=== PATIENT | male | born 2000 | race African-American/Black ===

== ENCOUNTER 2024-09-16 18:04 | Inpatient (IN) | payer OTHER, SELFPAY ==
--- NOTE | 2024-09-16 18:33 | PC.NURSE ---
Patient arrived on the unit at 1818 on a CV from [facility]. Patients vitals have been completed (97% 96HR, 15R, 114/75 98.8) and skin check was done with another nurse and found unremarkable. Patient has been given a bag of toiletries and oriented to the unit and his room.
[2024-09-16 18:38] VITALS: BP 114/75; PULSE 96; RESP 15; TEMP 37.1; O2SAT 97; BMI 26.6
[2024-09-16 19:43] LABS: Glucose, Whole Blood 340 mg/dL (60-115)
[2024-09-16 20:00] VITALS: BP 140/75; PULSE 97; RESP 16; TEMP 37.4; O2SAT 100
[2024-09-16] MEDS: Melatonin 3 MG TABLET 6 MG PO (21:25)
[2024-09-16] MEDS: traZODone HCL 50 MG TABLET PO (21:25)
[2024-09-16] MEDS: Gabapentin 600 MG TABLET PO (21:26)
[2024-09-16] MEDS: hydrOXYzine HCL 25 MG TABLET PO (21:26)
[2024-09-16] MEDS: Insulin Glargine,Hum.rec.anlog 100 UNIT/ML 10 ML VIAL 11.2 UNIT SUBCUT (21:46)
--- NOTE | 2024-09-17 03:33 | PC.ADMIT ---
At 1818, Lacie Salgado, is a 23 year old transgender male (he/him) who was transferred from [facility] and admitted to on a CV for treatment of unspecified depression and anxiety. Pt initially presented to [facility] with altered mental status and in a hyperglycemic state related to his Type Two Diabetes. Pt was admitted to the ICU for further management, medically cleared, then transferred to a medical floor. While being there, the medical team was concerned about possible non-compliance with meds/insulin and pt making a passive SI statement while in their care. PMHX includes insulin dependent type two diabetes, diagnosed at 21, (Recent A1C 16.1% 08/14/24; average BG 237-381) chronic pancreatitis, depression, anxiety, SIB via cutting his wrists and thighs during late teens/early twenties.The last episode of self-harm was at 21/20 years old. Reports using a therapist but denies history of inpatient psychiatric treatment. Per crisis assessment, he endorses worsening depressive symptoms, insomnia (3-5 hours a night), low energy, CAH, and he has had one suicide attempt approximately a week ago. Crisis report states, pt was looking for a bleach bottle at home with the intent to drink it to end his life, reporting he was struggling with voices in his head. Upon arrival to , he was pleasant, soft spoken, and cooperative. Skin check was unremarkable. Tox was negative. Affect is restricted. Reported unintentional 5-7lb weight loss from adjusting to diabetes. Per crisis assessment, he endorses worsening depressive symptoms, insomnia (3-5 hours a night), low energy, and CAH. During 1:1, he denied anxiety, depression, and all other psych symptoms such as AVH and SI/HI. He stated, ?I?m confused. fine. I?m not crazy. I don?t need to be here. I want it all to end sometimes but I don?t want to actually . I think the doctor misunderstood me when I said the pain from my diabetes makes me want to .? Denies SIB, suicide attempts, and current SI/HI. Reports 8/10 mid-abdominal pain, radiating to his side, he believes is related to his chronic pancreatitis. He states he uses 10mg of Oxycodone for pain management. (Med rec indicated hx of 5mg) Pt POC order still pending. Hospitalist consult ordered. Reports feeling safe on the unit. Pt placed on 15 minute checks. Safety tool, treatment plan, and belongings to be signed.?
[2024-09-17 07:49] LABS: Glucose, Whole Blood 229 mg/dL (60-115)
[2024-09-17 08:02] VITALS: BP 100/57; PULSE 76; RESP 16; TEMP 36.8; O2SAT 97
[2024-09-17] MEDS: Cholecalciferol (Vitamin D3) 25 MCG TABLET 50 MCG PO (09:05)
[2024-09-17] MEDS: Insulin Lispro 100 UNIT/ML 3 ML VIAL SUBCUT ×3 (09:05→18:09)
[2024-09-17] MEDS: Sertraline HCL 100 MG TABLET PO (09:05)
[2024-09-17] MEDS: Gabapentin 600 MG TABLET PO ×3 (09:05→20:34)
[2024-09-17] MEDS: Acetaminophen 325 MG TABLET 650 MG PO ×2 (09:08→20:32)
[2024-09-17 10:07] LABS: Alanine Aminotransferase 77 U/L (0-40); Albumin Level 4.3 g/dL (3.5-5.0); Alkaline Phosphatase 87 U/L (39-117); Anion Gap 24 (12-20); Aspartate Amino Transferase 56 U/L (5-37); Bilirubin Total 0.5 mg/dL (0.0-1.0); Blood Urea Nitrogen 12 mg/dL (9-16); Calcium 9.6 mg/dL (8.4-10.2); Carbon Dioxide 18 mmol/L (22-29); Chloride 98 mmol/L (96-108); Cholesterol 217 mg/dL (<200); Creatinine Clr Calc Pharmacy 94.9; Estimated Glomerular Filt Rate > 60; Glucose Random 290 mg/dL (60-115); HDL Cholesterol 57 mg/dL (>40); LDL Cholesterol Calculated 134 mg/dL (<100); Potassium 3.9 mmol/L (3.3-5.1); Sodium 136 mmol/L (135-145); Total Protein 7.2 g/dL (6.5-8.0); Triglycerides 134 mg/dL (<150)
--- NOTE | 2024-09-17 10:18 | P.HPPS_ITS ---
HPI Date of Service: 09/17/24 Chief Complaint: Unspecified Depressive Disorder, Unsp Anxiety Dis Sources of Information: patient interviewed, chart reviewed and crisis/core team assessment reviewed HPI Subjective Notes: Magana Warning, Conditional Voluntary and 3 Day Narrative: is a 23 year-old transgendered male who was initially brought via EMS to [facility] on 09/11/24 due to pt presenting as confused, non verbal. He was found to be hyperosmolar hyperglycemic (BS over 750) but no DKA (VBG 7.35). He was transferred briefly to ICU and started on an insulin drip. Pertinent labs include CBC without leukocytosis. CMP without electrolyte abnormalities (sodium level normal accounting for hyperglecemia), BUN 9, Cr. 0.87, creatinine clearance 120. TSH low 0.17, A1C 16%. Utox is negative. BAL is also negative. Pt had reported he had stopped taking insulin intentionally as suicide attempt. He also has hx of chronic pancreatitis which causes significant amount of pain. Pt had reported multiple medical conditions were trigger to suicide attempt. According to records from [facility] pt had reported ongoing suicidal ideation for the past 3 weeks of so with plan to drive care into [facility] or not taking insulin. Pt had also reported that he was looking a week ago for a bottle of bleach at home. On the unit, pt adamantly denies suicidal ideation. He reported that he gets tired of dealing with medical condition both DM and chronic pancreatitis which he reports has intermittent moderate to severe abdominal pain. He reported feeling better now that he is on the unit and reported feeling more optimistic about his life. He reports fair sleep. He reports his PCP has been prescribing medications. He denies hx of psychosis or delusions. He does not present with s/s of psychosis. He reports remote hx of SIB in late teens and early 20's. He reports current medications are helpful and would not want to make further changes. He does not think he should be here. Past Psychiatric History: Inpt: none OP: Kiel Sun- psychotherapist ([phone]) PCP: Dr. Raz Valladares Past medication trials: sertraline, lexapro Medical Evaluation Reviewed: Yes [facility] Medical History (Updated 09/19/24 @ 07:03 by Myra Wilson NP) Chronic pancreatitis Depression Anxiety Family History: none Social History: Pt born in [facility]. He came with family to [place] in [place]. He currently lives with mother in [place], [place] with 3 siblings ages 18, 16, 11. 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. He completed HS. Substance History: none Trauma History: not disclosed Diagnostics Vital Signs (24Hr): Vital Signs - 24 hr 09/16/24 18:38 09/16/24 20:00 09/17/24 08:02 Temperature 98.8 F 99.3 F 98.2 F Pulse Rate 96 97 76 Respiratory Rate 15 16 16 Blood Pressure 114/75 140/75 H 100/57 L Pulse Oximetry 97 100 97 Oxygen Delivery Method Room Air Room Air Room Air BMI result Body Mass Index 26.6 Labs 09/17/24 09:03 Labs: Laboratory Results - last 48 hr 09/16/24 09/17/24 09/17/24 19:38 07:42 09:03 Sodium 136 Potassium 3.9 Chloride 98 Carbon Dioxide 18 L Anion Gap 24 H BUN 12 Creatinine 0.92 Estim Creat Clear Calc 94.9 Estimated GFR > 60 POC Glucose 340 H 229 H Random Glucose 290 H Calcium 9.6 Total Bilirubin 0.5 AST 56 H ALT 77 H Alkaline Phosphatase 87 Total Protein 7.2 Albumin 4.3 Triglycerides 134 Cholesterol 217 H LDL Cholesterol, Calc 134 H HDL Cholesterol 57 Meds/Allergies Meds Home Medications ?Medication ?Instructions ?Recorded ?Confirmed ?Type Tylenol 500 mg PO Q6-8H PRN Pain (Scale 09/16/24 09/16/24 History Score 7-10) cholecalciferol (vitamin D3) 50 50 mcg PO DAILY 09/16/24 09/16/24 History mcg (2,000 unit) capsule gabapentin 600 mg tablet 600 mg PO TID 09/16/24 09/16/24 History hydroxyzine HCl 25 mg tablet 25 mg PO TID PRN anxiety 09/16/24 09/16/24 History ibuprofen 600 mg tablet 600 mg PO QID PRN Pain 09/16/24 09/16/24 History insulin aspart U-100 100 unit/mL 5 unit subcut TIDWM 09/16/24 09/16/24 History (3 mL) subcutaneous pen insulin degludec 100 unit/mL (3 16 unit subcut BEDTIME 09/16/24 09/16/24 History mL) subcutaneous pen (Tresiba FlexTouch U-100 insulin) [id number] 36,000 cap PO TIDWM 09/16/24 09/16/24 History 36,000-114,000-180,000 unit capsule,delay rel (Creon) melatonin 3 mg tablet 6 mg PO BEDTIME insomnia 09/16/24 09/16/24 History oxycodone 5 mg tablet 5 mg PO Q6H PRN pain 09/16/24 09/16/24 History sertraline 100 mg tablet 100 mg PO DAILY 09/16/24 09/16/24 History testosterone cypionate 200 mg/mL 40 mg IM QWEEK 09/16/24 09/16/24 History intramuscular oil Allergies Allergies Allergy/AdvReac Type Severity Reaction Status Date / Time No Known Allergies Allergy Verified 09/16/24 18:13 Mental Status Exam Mental Status Exam Narrative: Appearance: wearing hospital gown, fair hygiene, in NAD Behavior: cooperative, superficially cooperative Psychomotor: no agitation or retardation noted Speech: clear, normal rate/rhythm/volume, spontaneous TP: linear TC: wanting to go home soon SI: adamantly denies HI: none VH/AH: none Delusions: none Insight/judgment: poor x 2. Memory/cog: alert, oriented x 3. grossly intact to conversational testing. Assessment & Plan Assessment & Plan (1) MDD (major depressive disorder), recurrent episode, moderate: Status: Acute Code(s): F33.1 - Major depressive disorder, recurrent, moderate Plan Mr. Salgado is a 23 year-old transgendered male who initially was brought to [facility] due to AMS secondary to being in hyperosmolar hyperglecemic state (no DKA despite BS >750). He reported intentionally not taking insulin as suicide attempt. He also had reported at the other hospital ongoing suicidal ideation for the past month or so in context of worsening medical conditions including uncontrolled DM with an A1c of 16% and chronic pancreatitis which causes him to have intermittent moderate to severe abdominal pain. However, here on the unit, he adamantly denies suicidal ideation. He reports it was brief moment of frustration his decision not to take insulin. He reports he feels more optimistic and hopes to be discharged soon. We discussed risks, benefits and alternative treatment options. He wants to continue current medication including sertraline. PLAN 1. Admit to S1, CV, 15 minutes checks 2. continue current medications 3. obtain collateral information 4. aftercare planning Patient educated on: diagnosis and medication risk/benefits Reason for continued inpatient stay Substantial Risk for: harm to self Statement Statement: I have reviewed the history and physical and performed a pertinent examination on my patient. No changes have occurred unless specified. If the History and Physical was not performed prior to admission, the Hospitalist's service will be consulted for completing the admission physical. Time Spent With Patient Time: Total time managing care of this patient today ____ minutes.
[2024-09-17 10:20] LABS: Thyroid Stimulating Hormone 2.13 uIU/mL (0.32-4.0)
[2024-09-17 10:27] LABS: Folate 13.7 ng/mL (> or = 4.0); Vitamin B12 1469 pg/mL (200-900)
--- NOTE | 2024-09-17 11:30 | P.HPHOSP_ITS ---
History of Present Illness Date of Service: 09/17/24 Chief Complaint: Admission H&P Pt is a 23-year-old transgender male with a PMH significant for?uncontrolled insulin-dependent type 2 diabetes, chronic pancreatitis, chronic occlusion of splenic vein, depression, and anxiety who is admitted to [facility] psychiatry unit for passive SI in the setting of psychosocial stressors and chronic health concerns. Pt initially presented to [facility] with hyperglycemia and AMS. Patient's glucose was 737, and serum osmolality 323 but not in DKA as beta hydroxybutyrate was 1.8. Was admitted to the ICU for hyperosmolar hyperglycemic state and started on an insulin drip. Pt has a long hx of noncompliance with insulin, and often will not administer it until sugars are in the 500-700 range. Apparently has previous hospitalizations for DKA. Medical consult for admission H&P. Pt seen and evaluated on the unit?where he is resting comfortably in bed. Pt reports was diagnosed with diabetes 2-3 years ago when he was also diagnosed with chronic pancreatitis. Pt is unsure of any other details, including etiology of either condition. Uncertain whether he has type 1, type 2, or type 3c diabetes. States has been on chronic opioids for the past year for chronic abdominal pain, which is apparently prescribed by his PCP. Currently pt has no acute medical complaints and denies nausea, vomiting, abdominal pain. No fever, chills. Denies chest pain/pressure, palpitations. No SOB or difficulty breathing. Labs reviewed, significant for PMFSH Social History Household Members: Family Housing: House Do you presently have visiting nurse or other home services: No Patient Tobacco Use Status: Never used Tobacco Currently Displaying Signs/Symptoms of Drug Intoxication Withdrawal: No Have you been hit, kicked, punched, or otherwise hurt by someone within the past year? If so, by whom?: No Do you feel safe in your current relationship?: Yes Is there a partner from a previous relationship who is making you feel unsafe now?: No Are you made to feel afraid or neglected: No Advance Directives: No Advance Directives Information Provided: Yes Do you have thoughts of harming others: None Do you have a plan to hurt others: No Plan Recently lost weight without trying: Yes How much weight loss: 2-13 pounds Eating poorly because of decreased appetite: No Nutrition screen score: 3 Nutrition Risks: No Nutritional Risk Poor oral hygiene: No Meds Allergies Allergy/AdvReac Type Severity Reaction Status Date / Time No Known Allergies Allergy Verified 09/16/24 18:13 Active Medications: Current Medications Acetaminophen (Acetaminophen 325 Mg Tablet) 650 mg PO Q6H PRN PRN Reason: Pain (Scale Score 7-10) Al Hydroxide/Mg Hydroxide (Magnesium Hydrox/Alum Hydrox 30 Ml Oral.Susp) 30 ml PO Q6H PRN PRN Reason: Heartburn/Nausea Gabapentin (Gabapentin 600 Mg Tablet) 600 mg PO TID [facility] Last Admin: 09/17/24 09:05 Dose: 600 mg Hydroxyzine HCl (Hydroxyzine Hcl 25 Mg Tablet) 25 mg PO TID PRN PRN Reason: anxiety Insulin Glargine (Insulin Glargine,Hum.Rec.Anlog 100 Unit/Ml 10 Ml Vial) 11.2 unit SUBCUT BEDTIME [facility] Last Admin: 09/16/24 21:46 Dose: 11.2 unit Insulin Human Lispro (Insulin Lispro 100 Unit/Ml 3 Ml Vial) 5 unit SUBCUT TIDWM [facility] Last Admin: 09/17/24 09:05 Dose: 5 unit Magnesium Hydroxide (Milk Of Magnesia 30 Ml Oral.Susp) 30 ml PO DAILY PRN PRN Reason: Constipation Melatonin (Melatonin 3 Mg Tablet) 6 mg PO BEDTIME [facility] Last Admin: 09/16/24 21:25 Dose: 6 mg Non-Formulary Medication (Gzpjmx-Aaxmynpk-Dxtorkq [Creon]) 36,000 cap PO TIDWM [facility] Non-Formulary Medication (Testosterone Cypionate) 40 mg IM Q7D [facility] Sertraline HCl (Sertraline Hcl 100 Mg Tablet) 100 mg PO DAILY [facility] Last Admin: 09/17/24 09:05 Dose: 100 mg Trazodone HCl (Trazodone Hcl 50 Mg Tablet) 50 mg PO BEDTIME MRX1 PRN PRN Reason: Insomnia Last Admin: 09/16/24 21:25 Dose: 50 mg Vitamin D (Cholecalciferol (Vitamin D3) 25 Mcg Tablet) 50 mcg PO DAILY [facility] Last Admin: 09/17/24 09:05 Dose: 50 mcg Home Medications ?Medication ?Instructions ?Recorded ?Confirmed ?Last Taken ?Type Tylenol 500 mg PO Q6-8H PRN Pain (Scale 09/16/24 09/16/24 Unknown History Score 7-10) cholecalciferol (vitamin D3) 50 50 mcg PO DAILY 09/16/24 09/16/24 Unknown History mcg (2,000 unit) capsule gabapentin 600 mg tablet 600 mg PO TID 09/16/24 09/16/24 09/13/24 14:50 History hydroxyzine HCl 25 mg tablet 25 mg PO TID PRN anxiety 09/16/24 09/16/24 Unknown History ibuprofen 600 mg tablet 600 mg PO QID PRN Pain 09/16/24 09/16/24 Unknown History insulin aspart U-100 100 unit/mL 5 unit subcut TIDWM 09/16/24 09/16/24 Unknown History (3 mL) subcutaneous pen insulin degludec 100 unit/mL (3 16 unit subcut BEDTIME 09/16/24 09/16/24 Unknown History mL) subcutaneous pen (Tresiba FlexTouch U-100 insulin) [id number] 36,000 cap PO TIDWM 09/16/24 09/16/24 Unknown History 36,000-114,000-180,000 unit capsule,delay rel (Creon) melatonin 3 mg tablet 6 mg PO BEDTIME insomnia 09/16/24 09/16/24 Unknown History oxycodone 5 mg tablet 5 mg PO Q6H PRN pain 09/16/24 09/16/24 Unknown History sertraline 100 mg tablet 100 mg PO DAILY 09/16/24 09/16/24 Unknown History testosterone cypionate 200 mg/mL 40 mg IM QWEEK 09/16/24 09/16/24 Unknown History intramuscular oil Physical Exam 2 Vital Signs and Narrative: Vital Signs: Last Vital Signs Temp 98.2 F 09/17/24 08:02 Pulse 76 09/17/24 08:02 Resp 16 09/17/24 08:02 BP 100/57 L 09/17/24 08:02 Pulse Ox 97 09/17/24 08:02 O2 Del Method Room Air 09/17/24 08:02 BMI result Body Mass Index 26.6 Results Labs 09/17/24 09:03 Labs: Laboratory Results - last 24 hr 09/16/24 09/17/24 09/17/24 19:38 07:42 09:03 Anion Gap 24 H Estim Creat Clear Calc 94.9 Estimated GFR > 60 POC Glucose 340 H 229 H Random Glucose 290 H Calcium 9.6 Total Bilirubin 0.5 AST 56 H ALT 77 H Alkaline Phosphatase 87 Total Protein 7.2 Albumin 4.3 Triglycerides 134 Cholesterol 217 H LDL Cholesterol, Calc 134 H HDL Cholesterol 57 Vitamin B12 1469 H Folate 13.7 TSH 2.13
[2024-09-17 12:28] LABS: Glucose, Whole Blood 199 mg/dL (60-115)
[2024-09-17 14:30] LABS: Hemoglobin A1C 561.8367 umol/L; Hemoglobin A1c % > 14.0 % (<6.0); Total Hemoglobin (HGBA1C) 4031.5939 umol/L
[2024-09-17] MEDS: oxyCODONE HCl Immed Release 5 MG TABLET PO ×2 (15:42→21:32)
--- NOTE | 2024-09-17 16:54 | PC.NURSE ---
Pt signed a 3 day 09/17/24, up on? Thursday09/21/24
[2024-09-17 16:58] LABS: Glucose, Whole Blood 286 mg/dL (60-115)
[2024-09-17 20:00] VITALS: BP 113/58; PULSE 97; RESP 16; TEMP 37.4; O2SAT 96
[2024-09-17 20:30] LABS: Glucose, Whole Blood 487 mg/dL (60-115)
[2024-09-17] MEDS: Melatonin 3 MG TABLET 6 MG PO (20:33)
[2024-09-17] MEDS: traZODone HCL 50 MG TABLET PO (20:34)
[2024-09-17] MEDS: Insulin Glargine,Hum.rec.anlog 100 UNIT/ML 10 ML VIAL 11.2 UNIT SUBCUT (20:34)
[2024-09-17] MEDS: hydrOXYzine HCL 25 MG TABLET PO (20:34)
[2024-09-17 21:40] LABS: Glucose, Whole Blood 491 mg/dL (60-115)
[2024-09-17] MEDS: Insulin Lispro 100 UNIT/ML 3 ML VIAL 10 UNIT SUBCUT (22:10)
[2024-09-18 08:01] VITALS: BP 108/59; PULSE 78; RESP 16; TEMP 37.2; O2SAT 98
[2024-09-18 08:06] LABS: Glucose, Whole Blood 402 mg/dL (60-115)
[2024-09-18] MEDS: Sertraline HCL 100 MG TABLET PO (08:35)
[2024-09-18] MEDS: Insulin Lispro 100 UNIT/ML 3 ML VIAL SUBCUT ×7 (08:35→21:40)
[2024-09-18] MEDS: Cholecalciferol (Vitamin D3) 25 MCG TABLET 50 MCG PO (08:35)
[2024-09-18] MEDS: Gabapentin 600 MG TABLET PO ×3 (08:35→21:37)
[2024-09-18] MEDS: Insulin Glargine,Hum.rec.anlog 100 UNIT/ML 10 ML VIAL 10 UNIT SUBCUT ×2 (08:50→21:41)
[2024-09-18 11:54] LABS: Glucose, Whole Blood 297 mg/dL (60-115)
[2024-09-18] MEDS: oxyCODONE HCl Immed Release 5 MG TABLET PO ×2 (12:05→20:04)
--- NOTE | 2024-09-18 16:45 | HO.PM.IMCN ---
History of Present Illness Data of Consult Service Date: 09/17/24 Primary Care Provider: Unknown Physician HPI Reason for consult: Admission H&P Pt is a 23-year-old transgender male with a PMH significant for?uncontrolled insulin-dependent type 2 diabetes, chronic pancreatitis, chronic occlusion of splenic vein, depression, and anxiety who is admitted to M3 psychiatry unit for passive SI in the setting of psychosocial stressors and chronic health concerns. Pt initially presented to [facility] with hyperglycemia and AMS. Patient's glucose was 737, and serum osmolality 323 but not in DKA as beta hydroxybutyrate was 1.8. Was admitted to the ICU for hyperosmolar hyperglycemic state and started on an insulin drip. Pt has a long hx of noncompliance with insulin, and often will not administer it until sugars are in the 500-700 range. Apparently has previous hospitalizations for DKA. Medical consult for admission H&P. Pt seen and evaluated on the unit?where he is resting comfortably in bed. Pt reports was diagnosed with diabetes 2-3 years ago when he was also diagnosed with chronic pancreatitis. Pt is unsure of any other details, including etiology of either condition. Uncertain whether he has type 1, type 2, or type 3c diabetes. States has been on chronic opioids for the past year for chronic abdominal pain, which is apparently prescribed by his PCP. Currently pt has no acute medical complaints and denies nausea, vomiting, abdominal pain. No fever, chills. Denies chest pain/pressure, palpitations. No SOB or difficulty breathing. Review of records show last A1c 16.1 on 08/14/2024. Labs reviewed, significant for hyperglycemia in the 400s and A1c >14.0. Review of Systems Review of Systems: Pt has no acute medical complaints at this time. [facility] Medical History (Updated 09/18/24 @ 16:48 by MASOUD Tate) Chronic pancreatitis Depression Anxiety Social History Household Members: Family Housing: House Do you presently have visiting nurse or other home services: No Patient Tobacco Use Status: Never used Tobacco Currently Displaying Signs/Symptoms of Drug Intoxication Withdrawal: No Have you been hit, kicked, punched, or otherwise hurt by someone within the past year? If so, by whom?: No Do you feel safe in your current relationship?: Yes Is there a partner from a previous relationship who is making you feel unsafe now?: No Are you made to feel afraid or neglected: No Advance Directives: No Advance Directives Information Provided: Yes Do you have thoughts of harming others: None Do you have a plan to hurt others: No Plan Recently lost weight without trying: Yes How much weight loss: 2-13 pounds Eating poorly because of decreased appetite: No Nutrition screen score: 3 Nutrition Risks: No Nutritional Risk Poor oral hygiene: No Meds Allergies Allergy/AdvReac Type Severity Reaction Status Date / Time No Known Allergies Allergy Verified 09/16/24 18:13 Active Medications: Current Medications Acetaminophen (Acetaminophen 325 Mg Tablet) 650 mg PO Q6H PRN PRN Reason: Pain (Scale Score 7-10) Last Admin: 09/17/24 20:32 Dose: 650 mg Al Hydroxide/Mg Hydroxide (Magnesium Hydrox/Alum Hydrox 30 Ml Oral.Susp) 30 ml PO Q6H PRN PRN Reason: Heartburn/Nausea Dextrose (Dextrose 50 % 25 Gm/50 Ml Syringe) 25 gm IVPUSH Q15M PRN; Protocol PRN Reason: per Hypoglycemia Standing Ord. Gabapentin (Gabapentin 600 Mg Tablet) 600 mg PO TID [facility] Last Admin: 09/18/24 14:38 Dose: 600 mg Glucose (Glucose Gel 15 Gm Gel..Gram.) 15 gm PO Q15M PRN; Protocol PRN Reason: per Hypoglycemia Standing Ord. Hydroxyzine HCl (Hydroxyzine Hcl 25 Mg Tablet) 25 mg PO TID PRN PRN Reason: anxiety Last Admin: 09/17/24 20:34 Dose: 25 mg Insulin Glargine (Insulin Glargine,Hum.Rec.Anlog 100 Unit/Ml 10 Ml Vial) 10 unit SUBCUT DAILY [facility] Last Admin: 09/18/24 08:50 Dose: 10 unit Insulin Glargine (Insulin Glargine,Hum.Rec.Anlog 100 Unit/Ml 10 Ml Vial) 10 unit SUBCUT BEDTIME [facility] Insulin Human Lispro (Insulin Lispro 100 Unit/Ml 3 Ml Vial) 5 unit SUBCUT TIDWM [facility] Last Admin: 09/18/24 12:06 Dose: 5 unit Insulin Human Lispro (Insulin Lispro 100 Unit/Ml 3 Ml Vial) 0 unit SUBCUT QIDACHS [facility]; Protocol Last Admin: 09/18/24 12:06 Dose: 6 unit Magnesium Hydroxide (Milk Of Magnesia 30 Ml Oral.Susp) 30 ml PO DAILY PRN PRN Reason: Constipation Melatonin (Melatonin 3 Mg Tablet) 6 mg PO BEDTIME [facility] Last Admin: 09/17/24 20:33 Dose: 6 mg Non-Formulary Medication (Zumkir-Ybagbtkm-Usukdxm [Creon]) 36,000 cap PO TIDWM [facility] Non-Formulary Medication (Testosterone Cypionate) 40 mg IM Q7D [facility] Oxycodone HCl (Oxycodone Hcl Immed Release 5 Mg Tablet) 5 mg PO Q6H PRN PRN Reason: severe,pain Last Admin: 09/18/24 12:05 Dose: 5 mg Sertraline HCl (Sertraline Hcl 100 Mg Tablet) 100 mg PO DAILY [facility] Last Admin: 09/18/24 08:35 Dose: 100 mg Trazodone HCl (Trazodone Hcl 50 Mg Tablet) 50 mg PO BEDTIME MRX1 PRN PRN Reason: Insomnia Last Admin: 09/17/24 20:34 Dose: 50 mg Vitamin D (Cholecalciferol (Vitamin D3) 25 Mcg Tablet) 50 mcg PO DAILY [facility] Last Admin: 09/18/24 08:35 Dose: 50 mcg Home Medications ?Medication ?Instructions ?Recorded ?Confirmed ?Last Taken ?Type Tylenol 500 mg PO Q6-8H PRN Pain (Scale 09/16/24 09/16/24 Unknown History Score 7-10) cholecalciferol (vitamin D3) 50 50 mcg PO DAILY 09/16/24 09/16/24 Unknown History mcg (2,000 unit) capsule gabapentin 600 mg tablet 600 mg PO TID 09/16/24 09/16/24 09/13/24 14:50 History hydroxyzine HCl 25 mg tablet 25 mg PO TID PRN anxiety 09/16/24 09/16/24 Unknown History ibuprofen 600 mg tablet 600 mg PO QID PRN Pain 09/16/24 09/16/24 Unknown History insulin aspart U-100 100 unit/mL 5 unit subcut TIDWM 09/16/24 09/16/24 Unknown History (3 mL) subcutaneous pen insulin degludec 100 unit/mL (3 16 unit subcut BEDTIME 09/16/24 09/16/24 Unknown History mL) subcutaneous pen (Tresiba FlexTouch U-100 insulin) [id number] 36,000 cap PO TIDWM 09/16/24 09/16/24 Unknown History 36,000-114,000-180,000 unit capsule,delay rel (Creon) melatonin 3 mg tablet 6 mg PO BEDTIME insomnia 09/16/24 09/16/24 Unknown History oxycodone 5 mg tablet 5 mg PO Q6H PRN pain 09/16/24 09/16/24 Unknown History sertraline 100 mg tablet 100 mg PO DAILY 09/16/24 09/16/24 Unknown History testosterone cypionate 200 mg/mL 40 mg IM QWEEK 09/16/24 09/16/24 Unknown History intramuscular oil Physical Exam Vital Signs and Narrative: Vital Signs: Last Vital Signs Temp 98.9 F 09/18/24 08:01 Pulse 78 09/18/24 08:01 Resp 16 09/18/24 08:01 BP 108/59 L 09/18/24 08:01 Pulse Ox 98 09/18/24 08:01 O2 Del Method Room Air 09/18/24 08:01 BMI result Body Mass Index 26.6 General: AOx3, no acute distress Resp: CTA bilaterally CVS: S1, S2, RRR GI: +BS, NT, no distention Skin: Warm, dry Neuro: Cranial nerves II-XII grossly intact bilaterally. Motor grossly intact bilaterally Extremities: No edema Psych: Calm, cooperative Results Labs 09/17/24 09:03 Labs: Laboratory Results - last 24 hr 09/17/24 09/17/24 09/17/24 16:51 20:25 21:28 POC Glucose 286 H 487 H* 491 H* 09/18/24 09/18/24 08:01 11:49 POC Glucose 402 H* 297 H Assessment and Plan (1) Medical clearance for psychiatric admission: Status: Acute Plan Pt is a 23-year-old transgender male with a PMH significant for?uncontrolled insulin-dependent type 2 diabetes, chronic pancreatitis, chronic occlusion of splenic vein, depression, and anxiety who is admitted to M3 psychiatry unit for passive SI in the setting of psychosocial stressors and chronic health concerns. Pt initially presented to [facility] with hyperglycemia and AMS. Patient's glucose was 737, and serum osmolality 323 but not in DKA as beta hydroxybutyrate was 1.8. Was admitted to the ICU for hyperosmolar hyperglycemic state and started on an insulin drip. Hospitalist consult for admission H&P. Mood disorder Plan as per Psychiatry Insulin-dependent diabetes, uncontrolled and with hyperglycemia Unclear if type 1, type 2, or type 3c from chronic pancreatitis Will check C-peptide to help establish type Regardless, is poorly controlled: A1c >14.0, POCs in 300-400s on the unit Poor compliance with insulin, often does not dose until sugars in the 500-700s Will place on sliding scale, standing 5 units before meals, Lantus split dosing with 10 units daily and at night Pt on a diabetic diet, encourage diabetic snacking Will adjust insulin accordingly Chronic pain Pt on chronic opioids for at least a year Pt reports is for chronic abd pain Continue as per psychiatry discretion Chronic pancreatitis Continue Creon Transgender status Continue testosterone Will continue to follow for now to monitor POC and adjust insulin.
[2024-09-18 16:59] LABS: Glucose, Whole Blood 392 mg/dL (60-115)
[2024-09-18 20:00] VITALS: BP 112/57; PULSE 95; RESP 18; TEMP 36.9; O2SAT 97
[2024-09-18 20:41] LABS: Glucose, Whole Blood 415 mg/dL (60-115)
[2024-09-18] MEDS: Melatonin 3 MG TABLET 6 MG PO (21:37)
[2024-09-18] MEDS: traZODone HCL 50 MG TABLET PO (21:40)
[2024-09-18] MEDS: hydrOXYzine HCL 25 MG TABLET PO (21:40)
--- NOTE | 2024-09-18 21:49 | P.PNPSI_ITS ---
Subjective Subjective Date of Service: 09/18/24 Reason For Visit: Unspecified Depressive Disorder, Unsp Anxiety Dis Subjective Notes: Conditional Voluntary Interim History: Pt slept through the night. He continues to denied suicidal ideation. he reports he feels better and understand that adjusting to medical condition and care required has been challenging. However, he reports he is thinking about his future including considering going to college. No SI/HI. No behavioral concerns. BS continue elevated, seen by hospitalist to adjust meds. Review of Systems Review of Systems Pt has no acute medical complaints at this time. Mental Status Exam Mental Status Exam Narrative: Appearance: wearing hospital gown, fair hygiene, in NAD Behavior: cooperative, superficially cooperative Psychomotor: no agitation or retardation noted Speech: clear, normal rate/rhythm/volume, spontaneous TP: linear TC: wanting to go home soon SI: adamantly denies HI: none VH/AH: none Delusions: none Insight/judgment: poor x 2. Memory/cog: alert, oriented x 3. grossly intact to conversational testing. Diagnostics Vital Signs (24Hr): Vital Signs - 24 hr 09/18/24 08:01 09/18/24 20:00 Temperature 98.9 F 98.4 F Pulse Rate 78 95 Respiratory Rate 16 18 Blood Pressure 108/59 L 112/57 L Pulse Oximetry 98 97 Oxygen Delivery Method Room Air Room Air BMI result Body Mass Index 26.6 Labs 09/17/24 09:03 Labs: Laboratory Results - last 48 hr 09/17/24 09/17/24 09/17/24 07:42 09:03 12:22 Sodium 136 Potassium 3.9 Chloride 98 Carbon Dioxide 18 L Anion Gap 24 H BUN 12 Creatinine 0.92 Estim Creat Clear Calc 94.9 Estimated GFR > 60 POC Glucose 229 H 199 H Random Glucose 290 H Estimat Average Glucose TNP Hemoglobin A1c % > 14.0 H Calcium 9.6 Total Bilirubin 0.5 AST 56 H ALT 77 H Alkaline Phosphatase 87 Total Protein 7.2 Albumin 4.3 Triglycerides 134 Cholesterol 217 H LDL Cholesterol, Calc 134 H HDL Cholesterol 57 Vitamin B12 1469 H Folate 13.7 TSH 2.13 09/17/24 09/17/24 09/17/24 16:51 20:25 21:28 Sodium Potassium Chloride Carbon Dioxide Anion Gap BUN Creatinine Estim Creat Clear Calc Estimated GFR POC Glucose 286 H 487 H* 491 H* Random Glucose Estimat Average Glucose Hemoglobin A1c % Calcium Total Bilirubin AST ALT Alkaline Phosphatase Total Protein Albumin Triglycerides Cholesterol LDL Cholesterol, Calc HDL Cholesterol Vitamin B12 Folate TSH 09/18/24 09/18/24 09/18/24 08:01 11:49 16:55 Sodium Potassium Chloride Carbon Dioxide Anion Gap BUN Creatinine Estim Creat Clear Calc Estimated GFR POC Glucose 402 H* 297 H 392 H* Random Glucose Estimat Average Glucose Hemoglobin A1c % Calcium Total Bilirubin AST ALT Alkaline Phosphatase Total Protein Albumin Triglycerides Cholesterol LDL Cholesterol, Calc HDL Cholesterol Vitamin B12 Folate TSH 09/18/24 20:25 Sodium Potassium Chloride Carbon Dioxide Anion Gap BUN Creatinine Estim Creat Clear Calc Estimated GFR POC Glucose 415 H* Random Glucose Estimat Average Glucose Hemoglobin A1c % Calcium Total Bilirubin AST ALT Alkaline Phosphatase Total Protein Albumin Triglycerides Cholesterol LDL Cholesterol, Calc HDL Cholesterol Vitamin B12 Folate TSH Medications Medications Current Medications Acetaminophen (Acetaminophen 325 Mg Tablet) 650 mg PO Q6H PRN PRN Reason: Pain (Scale Score 7-10) Last Admin: 09/17/24 20:32 Dose: 650 mg Al Hydroxide/Mg Hydroxide (Magnesium Hydrox/Alum Hydrox 30 Ml Oral.Susp) 30 ml PO Q6H PRN PRN Reason: Heartburn/Nausea Dextrose (Dextrose 50 % 25 Gm/50 Ml Syringe) 25 gm IVPUSH Q15M PRN; Protocol PRN Reason: per Hypoglycemia Standing Ord. Gabapentin (Gabapentin 600 Mg Tablet) 600 mg PO TID [facility] Last Admin: 09/18/24 21:37 Dose: 600 mg Glucose (Glucose Gel 15 Gm Gel..Gram.) 15 gm PO Q15M PRN; Protocol PRN Reason: per Hypoglycemia Standing Ord. Hydroxyzine HCl (Hydroxyzine Hcl 25 Mg Tablet) 25 mg PO TID PRN PRN Reason: anxiety Last Admin: 09/18/24 21:40 Dose: 25 mg Insulin Glargine (Insulin Glargine,Hum.Rec.Anlog 100 Unit/Ml 10 Ml Vial) 10 unit SUBCUT DAILY [facility] Last Admin: 09/18/24 08:50 Dose: 10 unit Insulin Glargine (Insulin Glargine,Hum.Rec.Anlog 100 Unit/Ml 10 Ml Vial) 10 unit SUBCUT BEDTIME [facility] Last Admin: 09/18/24 21:41 Dose: 10 unit Insulin Human Lispro (Insulin Lispro 100 Unit/Ml 3 Ml Vial) 5 unit SUBCUT TIDWM [facility] Last Admin: 09/18/24 17:09 Dose: 5 unit Insulin Human Lispro (Insulin Lispro 100 Unit/Ml 3 Ml Vial) 0 unit SUBCUT QIDACHS [facility]; Protocol Last Admin: 09/18/24 21:40 Dose: 10 unit Magnesium Hydroxide (Milk Of Magnesia 30 Ml Oral.Susp) 30 ml PO DAILY PRN PRN Reason: Constipation Melatonin (Melatonin 3 Mg Tablet) 6 mg PO BEDTIME [facility] Last Admin: 09/18/24 21:37 Dose: 6 mg Non-Formulary Medication (Cjapzk-Krrqvbyg-Grvutug [Creon]) 36,000 cap PO TIDWM [facility] Non-Formulary Medication (Testosterone Cypionate) 40 mg IM Q7D [facility] Oxycodone HCl (Oxycodone Hcl Immed Release 5 Mg Tablet) 5 mg PO Q6H PRN PRN Reason: severe,pain Last Admin: 09/18/24 20:04 Dose: 5 mg Sertraline HCl (Sertraline Hcl 100 Mg Tablet) 100 mg PO DAILY [facility] Last Admin: 09/18/24 08:35 Dose: 100 mg Trazodone HCl (Trazodone Hcl 50 Mg Tablet) 50 mg PO BEDTIME MRX1 PRN PRN Reason: Insomnia Last Admin: 09/18/24 21:40 Dose: 50 mg Vitamin D (Cholecalciferol (Vitamin D3) 25 Mcg Tablet) 50 mcg PO DAILY [facility] Last Admin: 09/18/24 08:35 Dose: 50 mcg Allergies Allergies Allergy/AdvReac Type Severity Reaction Status Date / Time No Known Allergies Allergy Verified 09/16/24 18:13 Assessment & Plan Assessment & Plan (1) MDD (major depressive disorder), recurrent episode, moderate: Status: Acute Code(s): F33.1 - Major depressive disorder, recurrent, moderate Plan Mr. Salgado is a 23 year-old transgendered male who initially was brought to [facility] due to AMS secondary to being in hyperosmolar hyperglecemic state (no DKA despite BS >750). He reported intentionally not taking insulin as suicide attempt. He also had reported at the other hospital ongoing suicidal ideation for the past month or so in context of worsening medical conditions including uncontrolled DM with an A1c of 16% and chronic pancreatitis which causes him to have intermittent moderate to severe abdominal pain. However, here on the unit, he adamantly denies suicidal ideation. He reports it was brief moment of frustration his decision not to take insulin. He reports he feels more optimistic and hopes to be discharged soon. We discussed risks, benefits and alternative treatment options. He wants to continue current medication including sertraline. PLAN 09/18 continue tx. Reason for continued inpatient stay Substantial Risk for: inability to function Time Spent With Patient Time: Total time managing care of this patient today ____ minutes.
[2024-09-19 07:51] LABS: Glucose, Whole Blood 292 mg/dL (60-115)
[2024-09-19 08:02] VITALS: BP 100/59; PULSE 84; RESP 12; TEMP 37.1; O2SAT 96
[2024-09-19] MEDS: Gabapentin 600 MG TABLET PO ×3 (08:22→21:30)
[2024-09-19] MEDS: Cholecalciferol (Vitamin D3) 25 MCG TABLET 50 MCG PO (08:22)
[2024-09-19] MEDS: Insulin Lispro 100 UNIT/ML 3 ML VIAL SUBCUT ×7 (08:22→21:29)
[2024-09-19] MEDS: Sertraline HCL 100 MG TABLET PO (08:22)
[2024-09-19] MEDS: Insulin Glargine,Hum.rec.anlog 100 UNIT/ML 10 ML VIAL 10 UNIT SUBCUT ×2 (08:23→21:38)
[2024-09-19] MEDS: oxyCODONE HCl Immed Release 5 MG TABLET PO ×2 (08:27→21:38)
--- NOTE | 2024-09-19 09:42 | HO.PSYCHPN ---
Subjective Subjective Date of Service: 09/19/24 Reason For Visit: Unspecified Depressive Disorder, Unsp Anxiety Dis Subjective Notes: Conditional Voluntary Interim History: Active on unit, social with peers. medication compliant. Pt reports he does not feel he needs to be inpatient. pt stated, I think the person talking to me at the other hospital got confused. I told her I used to be suicidal but I'm not currently. I used to have just thoughts because when I was hurting, I would think, I hate my life . denies hx of SA. Pt continues to deny SI/HI/VH/AH. 3 day up on 09/21/24. Medication Compliance: Yes Side effects from medications: No Attending Groups: Yes Mental Status Exam Mental Status Exam Narrative: Pt is alert and oriented; behavior is cooperative and calm; dressed in casual attire; mood is described as good ; eye contact appropriate; Speech is normal rate, volume and not pressured; thought process is organized; Thought content is on discharge; denies SI/HI/VH/AH. Diagnostics Vital Signs (24Hr): Vital Signs - 24 hr 09/18/24 20:00 09/19/24 08:02 Temperature 98.4 F 98.7 F Pulse Rate 95 84 Respiratory Rate 18 12 Blood Pressure 112/57 L 100/59 L Pulse Oximetry 97 96 Oxygen Delivery Method Room Air Room Air BMI result Body Mass Index 26.6 Labs 09/17/24 09:03 Labs: Laboratory Results - last 48 hr 09/17/24 09/17/24 09/17/24 09:03 12:22 16:51 Sodium 136 Potassium 3.9 Chloride 98 Carbon Dioxide 18 L Anion Gap 24 H BUN 12 Creatinine 0.92 Estim Creat Clear Calc 94.9 Estimated GFR > 60 POC Glucose 199 H 286 H Random Glucose 290 H Estimat Average Glucose TNP Hemoglobin A1c % > 14.0 H Calcium 9.6 Total Bilirubin 0.5 AST 56 H ALT 77 H Alkaline Phosphatase 87 Total Protein 7.2 Albumin 4.3 Triglycerides 134 Cholesterol 217 H LDL Cholesterol, Calc 134 H HDL Cholesterol 57 Vitamin B12 1469 H Folate 13.7 TSH 2.13 09/17/24 09/17/24 09/18/24 20:25 21:28 08:01 Sodium Potassium Chloride Carbon Dioxide Anion Gap BUN Creatinine Estim Creat Clear Calc Estimated GFR POC Glucose 487 H* 491 H* 402 H* Random Glucose Estimat Average Glucose Hemoglobin A1c % Calcium Total Bilirubin AST ALT Alkaline Phosphatase Total Protein Albumin Triglycerides Cholesterol LDL Cholesterol, Calc HDL Cholesterol Vitamin B12 Folate TSH 09/18/24 09/18/24 09/18/24 11:49 16:55 20:25 Sodium Potassium Chloride Carbon Dioxide Anion Gap BUN Creatinine Estim Creat Clear Calc Estimated GFR POC Glucose 297 H 392 H* 415 H* Random Glucose Estimat Average Glucose Hemoglobin A1c % Calcium Total Bilirubin AST ALT Alkaline Phosphatase Total Protein Albumin Triglycerides Cholesterol LDL Cholesterol, Calc HDL Cholesterol Vitamin B12 Folate TSH 09/19/24 07:46 Sodium Potassium Chloride Carbon Dioxide Anion Gap BUN Creatinine Estim Creat Clear Calc Estimated GFR POC Glucose 292 H Random Glucose Estimat Average Glucose Hemoglobin A1c % Calcium Total Bilirubin AST ALT Alkaline Phosphatase Total Protein Albumin Triglycerides Cholesterol LDL Cholesterol, Calc HDL Cholesterol Vitamin B12 Folate TSH Medications Medications Current Medications Acetaminophen (Acetaminophen 325 Mg Tablet) 650 mg PO Q6H PRN PRN Reason: Pain (Scale Score 7-10) Last Admin: 09/17/24 20:32 Dose: 650 mg Al Hydroxide/Mg Hydroxide (Magnesium Hydrox/Alum Hydrox 30 Ml Oral.Susp) 30 ml PO Q6H PRN PRN Reason: Heartburn/Nausea Dextrose (Dextrose 50 % 25 Gm/50 Ml Syringe) 25 gm IVPUSH Q15M PRN; Protocol PRN Reason: per Hypoglycemia Standing Ord. Gabapentin (Gabapentin 600 Mg Tablet) 600 mg PO TID [facility] Last Admin: 09/19/24 08:22 Dose: 600 mg Glucose (Glucose Gel 15 Gm Gel..Gram.) 15 gm PO Q15M PRN; Protocol PRN Reason: per Hypoglycemia Standing Ord. Hydroxyzine HCl (Hydroxyzine Hcl 25 Mg Tablet) 25 mg PO TID PRN PRN Reason: anxiety Last Admin: 09/18/24 21:40 Dose: 25 mg Insulin Glargine (Insulin Glargine,Hum.Rec.Anlog 100 Unit/Ml 10 Ml Vial) 10 unit SUBCUT DAILY [facility] Last Admin: 09/19/24 08:23 Dose: 10 unit Insulin Glargine (Insulin Glargine,Hum.Rec.Anlog 100 Unit/Ml 10 Ml Vial) 10 unit SUBCUT BEDTIME [facility] Last Admin: 09/18/24 21:41 Dose: 10 unit Insulin Human Lispro (Insulin Lispro 100 Unit/Ml 3 Ml Vial) 5 unit SUBCUT TIDWM [facility] Last Admin: 09/19/24 08:22 Dose: 5 unit Insulin Human Lispro (Insulin Lispro 100 Unit/Ml 3 Ml Vial) 0 unit SUBCUT QIDACHS [facility]; Protocol Last Admin: 09/19/24 08:23 Dose: 6 unit Magnesium Hydroxide (Milk Of Magnesia 30 Ml Oral.Susp) 30 ml PO DAILY PRN PRN Reason: Constipation Melatonin (Melatonin 3 Mg Tablet) 6 mg PO BEDTIME [facility] Last Admin: 09/18/24 21:37 Dose: 6 mg Non-Formulary Medication (Tirowp-Bhjnugea-Pwvzwus [Creon]) 36,000 cap PO TIDWM [facility] Non-Formulary Medication (Testosterone Cypionate) 40 mg IM Q7D [facility] Oxycodone HCl (Oxycodone Hcl Immed Release 5 Mg Tablet) 5 mg PO Q6H PRN PRN Reason: severe,pain Last Admin: 09/19/24 08:27 Dose: 5 mg Sertraline HCl (Sertraline Hcl 100 Mg Tablet) 100 mg PO DAILY [facility] Last Admin: 09/19/24 08:22 Dose: 100 mg Trazodone HCl (Trazodone Hcl 50 Mg Tablet) 50 mg PO BEDTIME MRX1 PRN PRN Reason: Insomnia Last Admin: 09/18/24 21:40 Dose: 50 mg Vitamin D (Cholecalciferol (Vitamin D3) 25 Mcg Tablet) 50 mcg PO DAILY [facility] Last Admin: 09/19/24 08:22 Dose: 50 mcg Allergies Allergies Allergy/AdvReac Type Severity Reaction Status Date / Time No Known Allergies Allergy Verified 09/16/24 18:13 Assessment & Plan Assessment & Plan (1) MDD (major depressive disorder), recurrent episode, moderate: Status: Acute Code(s): F33.1 - Major depressive disorder, recurrent, moderate Plan Mr. Salgado is a 23 year-old transgendered male who initially was brought to [facility] due to AMS secondary to being in hyperosmolar hyperglecemic state (no DKA despite BS >750). He reported intentionally not taking insulin as suicide attempt. He also had reported at the other hospital ongoing suicidal ideation for the past month or so in context of worsening medical conditions including uncontrolled DM with an A1c of 16% and chronic pancreatitis which causes him to have intermittent moderate to severe abdominal pain. However, here on the unit, he adamantly denies suicidal ideation. He reports it was brief moment of frustration his decision not to take insulin. He reports he feels more optimistic and hopes to be discharged soon. We discussed risks, benefits and alternative treatment options. He wants to continue current medication including sertraline. PLAN 1. Admit to S1, CV, 15 minutes checks 2. continue current medications 3. obtain collateral information 4. aftercare planning 09/19: Active on unit, social with peers. medication compliant. Pt reports he does not feel he needs to be inpatient. pt stated, I think the person talking to me at the other hospital got confused. I told her I used to be suicidal but I'm not currently. I used to have just thoughts because when I was hurting, I would think, I hate my life . denies hx of SA. Pt continues to deny SI/HI/VH/AH. 3 day up on 09/21/24. Patient educated on: diagnosis and medication risk/benefits Reason for continued inpatient stay Substantial Risk for: med/psych decompensation Time Spent With Patient Time: Total time managing care of this patient today _20___ minutes.
[2024-09-19 11:45] LABS: Glucose, Whole Blood 302 mg/dL (60-115)
[2024-09-19 16:44] LABS: Glucose, Whole Blood 390 mg/dL (60-115)
[2024-09-19 19:55] VITALS: BP 119/66; PULSE 102; RESP 14; TEMP 36.9; O2SAT 99
[2024-09-19 21:23] LABS: Glucose, Whole Blood 380 mg/dL (60-115)
[2024-09-19] MEDS: Melatonin 3 MG TABLET 6 MG PO (21:30)
[2024-09-19] MEDS: Acetaminophen 325 MG TABLET 650 MG PO (21:31)
[2024-09-19] MEDS: traZODone HCL 50 MG TABLET PO (21:31)
[2024-09-19] MEDS: hydrOXYzine HCL 25 MG TABLET PO (21:31)
[2024-09-20 06:45] LABS: C Peptide 0.72 ng/mL (0.80-3.85)
[2024-09-20 08:00] VITALS: BP 102/55; PULSE 82; RESP 15; TEMP 36.8; O2SAT 95
[2024-09-20 08:19] LABS: Glucose, Whole Blood 269 mg/dL (60-115)
[2024-09-20] MEDS: Insulin Lispro 100 UNIT/ML 3 ML VIAL SUBCUT ×7 (08:43→22:17)
[2024-09-20] MEDS: Insulin Glargine,Hum.rec.anlog 100 UNIT/ML 10 ML VIAL 10 UNIT SUBCUT ×2 (08:44→22:16)
[2024-09-20] MEDS: Cholecalciferol (Vitamin D3) 25 MCG TABLET 50 MCG PO (08:44)
[2024-09-20] MEDS: Gabapentin 600 MG TABLET PO ×3 (08:45→22:12)
[2024-09-20] MEDS: oxyCODONE HCl Immed Release 5 MG TABLET PO ×2 (08:45→22:12)
[2024-09-20] MEDS: Sertraline HCL 100 MG TABLET PO (08:45)
--- NOTE | 2024-09-20 08:59 | P.PNPSI_ITS ---
Subjective Subjective Date of Service: 09/20/24 Reason For Visit: Unspecified Depressive Disorder, Unsp Anxiety Dis Subjective Notes: 3 Day Interim History: Active on unit, social with peers. attending groups. Patient reports feeling good today; pt stated, I'm excited that summer is coming. I plan on hanging out with friends and going to work . Pt reports he plans on staying on top of my diabetes because I don't want to lose a leg .future oriented. denies SI/HI/VH/AH. per nursing, slept 8 hours. 3 day up on 09/21/24. Medication Compliance: Yes Side effects from medications: No Attending Groups: Yes Mental Status Exam Mental Status Exam Narrative: Pt is alert and oriented; behavior is cooperative and calm; dressed in casual attire; mood is described as good ; eye contact appropriate; Speech is normal rate, volume and not pressured; thought process is organized; Thought content is on discharge; denies SI/HI/VH/AH. Diagnostics Vital Signs (24Hr): Vital Signs - 24 hr 09/19/24 19:55 09/20/24 08:00 Temperature 98.4 F 98.2 F Pulse Rate 102 H 82 Respiratory Rate 14 15 Blood Pressure 119/66 102/55 L Pulse Oximetry 99 95 Oxygen Delivery Method Room Air Room Air BMI result Body Mass Index 26.6 Labs 09/17/24 09:03 Labs: Laboratory Results - last 48 hr 09/18/24 09/18/24 09/18/24 11:43 11:49 16:55 POC Glucose 297 H 392 H* C-Peptide 0.72 L 09/18/24 09/19/24 09/19/24 20:25 07:46 11:41 POC Glucose 415 H* 292 H 302 H C-Peptide 09/19/24 09/19/24 09/20/24 16:40 21:17 08:14 POC Glucose 390 H* 380 H* 269 H C-Peptide Medications Medications Current Medications Acetaminophen (Acetaminophen 325 Mg Tablet) 650 mg PO Q6H PRN PRN Reason: Pain (Scale Score 7-10) Last Admin: 09/19/24 21:31 Dose: 650 mg Al Hydroxide/Mg Hydroxide (Magnesium Hydrox/Alum Hydrox 30 Ml Oral.Susp) 30 ml PO Q6H PRN PRN Reason: Heartburn/Nausea Dextrose (Dextrose 50 % 25 Gm/50 Ml Syringe) 25 gm IVPUSH Q15M PRN; Protocol PRN Reason: per Hypoglycemia Standing Ord. Gabapentin (Gabapentin 600 Mg Tablet) 600 mg PO TID [facility] Last Admin: 09/20/24 08:45 Dose: 600 mg Glucose (Glucose Gel 15 Gm Gel..Gram.) 15 gm PO Q15M PRN; Protocol PRN Reason: per Hypoglycemia Standing Ord. Hydroxyzine HCl (Hydroxyzine Hcl 25 Mg Tablet) 25 mg PO TID PRN PRN Reason: anxiety Last Admin: 09/19/24 21:31 Dose: 25 mg Insulin Glargine (Insulin Glargine,Hum.Rec.Anlog 100 Unit/Ml 10 Ml Vial) 10 unit SUBCUT DAILY [facility] Last Admin: 09/20/24 08:44 Dose: 10 unit Insulin Glargine (Insulin Glargine,Hum.Rec.Anlog 100 Unit/Ml 10 Ml Vial) 10 unit SUBCUT BEDTIME [facility] Last Admin: 09/19/24 21:38 Dose: 10 unit Insulin Human Lispro (Insulin Lispro 100 Unit/Ml 3 Ml Vial) 5 unit SUBCUT TIDWM [facility] Last Admin: 09/20/24 08:43 Dose: 5 unit Insulin Human Lispro (Insulin Lispro 100 Unit/Ml 3 Ml Vial) 0 unit SUBCUT QIDACHS [facility]; Protocol Last Admin: 09/20/24 08:44 Dose: 6 unit Magnesium Hydroxide (Milk Of Magnesia 30 Ml Oral.Susp) 30 ml PO DAILY PRN PRN Reason: Constipation Melatonin (Melatonin 3 Mg Tablet) 6 mg PO BEDTIME [facility] Last Admin: 09/19/24 21:30 Dose: 6 mg Non-Formulary Medication (Eezlbj-Ovpnkzcy-Dmiwvzr [Creon]) 36,000 cap PO TIDWM [facility] Non-Formulary Medication (Testosterone Cypionate) 40 mg IM Q7D [facility] Oxycodone HCl (Oxycodone Hcl Immed Release 5 Mg Tablet) 5 mg PO Q6H PRN PRN Reason: severe,pain Last Admin: 09/20/24 08:45 Dose: 5 mg Sertraline HCl (Sertraline Hcl 100 Mg Tablet) 100 mg PO DAILY [facility] Last Admin: 09/20/24 08:45 Dose: 100 mg Trazodone HCl (Trazodone Hcl 50 Mg Tablet) 50 mg PO BEDTIME MRX1 PRN PRN Reason: Insomnia Last Admin: 09/19/24 21:31 Dose: 50 mg Vitamin D (Cholecalciferol (Vitamin D3) 25 Mcg Tablet) 50 mcg PO DAILY [facility] Last Admin: 09/20/24 08:44 Dose: 50 mcg Allergies Allergies Allergy/AdvReac Type Severity Reaction Status Date / Time No Known Allergies Allergy Verified 09/16/24 18:13 Assessment & Plan Assessment & Plan (1) MDD (major depressive disorder), recurrent episode, moderate: Status: Acute Code(s): F33.1 - Major depressive disorder, recurrent, moderate Plan Mr. Salgado is a 23 year-old transgendered male who initially was brought to [facility] due to AMS secondary to being in hyperosmolar hyperglecemic state (no DKA despite BS >750). He reported intentionally not taking insulin as suicide attempt. He also had reported at the other hospital ongoing suicidal ideation for the past month or so in context of worsening medical conditions including uncontrolled DM with an A1c of 16% and chronic pancreatitis which causes him to have intermittent moderate to severe abdominal pain. However, here on the unit, he adamantly denies suicidal ideation. He reports it was brief moment of frustration his decision not to take insulin. He reports he feels more optimistic and hopes to be discharged soon. We discussed risks, benefits and alternative treatment options. He wants to continue current medication including sertraline. PLAN 1. Admit to S1, CV, 15 minutes checks 2. continue current medications 3. obtain collateral information 4. aftercare planning 09/19: Active on unit, social with peers. medication compliant. Pt reports he does not feel he needs to be inpatient. pt stated, I think the person talking to me at the other hospital got confused. I told her I used to be suicidal but I'm not currently. I used to have just thoughts because when I was hurting, I would think, I hate my life . denies hx of SA. Pt continues to deny SI/HI/VH/AH. 3 day up on 09/21/24. 09/20: Active on unit, social with peers. attending groups. Patient reports feeling good today; pt stated, I'm excited that summer is coming. I plan on hanging out with friends and going to work . Pt reports he plans on staying on top of my diabetes because I don't want to lose a leg .future oriented. denies SI/HI/VH/AH. per nursing, slept 8 hours. 3 day up on 09/21/24. Patient educated on: diagnosis, medication risk/benefits and therapeutic strategies Reason for continued inpatient stay Substantial Risk for: stable for discharge Time Spent With Patient Time: Total time managing care of this patient today _20___ minutes.
[2024-09-20] MEDS: hydrOXYzine HCL 25 MG TABLET PO (12:13)
[2024-09-20 16:58] LABS: Glucose, Whole Blood 351 mg/dL (60-115)
[2024-09-20 16:58] LABS: Glucose, Whole Blood 373 mg/dL (60-115)
[2024-09-20 20:00] VITALS: BP 99/55; PULSE 83; RESP 16; TEMP 36.8; O2SAT 98
[2024-09-20 21:15] LABS: Glucose, Whole Blood 344 mg/dL (60-115)
[2024-09-20] MEDS: Acetaminophen 325 MG TABLET 650 MG PO (22:12)
[2024-09-20] MEDS: Melatonin 3 MG TABLET 6 MG PO (22:12)
[2024-09-20] MEDS: traZODone HCL 50 MG TABLET PO (22:19)
[2024-09-21 07:53] LABS: Glucose, Whole Blood 168 mg/dL (60-115)
[2024-09-21 07:59] VITALS: BP 130/60; PULSE 85; RESP 16; TEMP 36.6; O2SAT 98
[2024-09-21] MEDS: Cholecalciferol (Vitamin D3) 25 MCG TABLET 50 MCG PO (08:20)
[2024-09-21] MEDS: Sertraline HCL 100 MG TABLET PO (08:21)
[2024-09-21] MEDS: oxyCODONE HCl Immed Release 5 MG TABLET PO (08:21)
[2024-09-21] MEDS: Gabapentin 600 MG TABLET PO (08:21)
[2024-09-21] MEDS: Insulin Lispro 100 UNIT/ML 3 ML VIAL SUBCUT ×2 (08:22)
[2024-09-21] MEDS: Insulin Glargine,Hum.rec.anlog 100 UNIT/ML 10 ML VIAL 10 UNIT SUBCUT (08:22)
--- NOTE | 2024-09-21 10:07 | PM.PSYDC ---
DS: Providers Provider Date of Service: 09/21/24 Date of admission: 09/16/24 18:04 Date of discharge: 09/21/24 Primary care physician: Unknown Physician Admitting clinician: Myra Wilson Attending physician on admission: Rashel Montes Consults: 09/16/24 18:54 Consult to Hospitalist Routine Comment: Consulting Provider: [facility] Hospitalists Reason For Exam: medical H&P Attending physician on discharge: Rashel Montes Discharging clinician: Carolina Hernandez DS: Diagnosis Discharge Diagnosis (1) MDD (major depressive disorder), recurrent episode, moderate: Status: Acute DS: Medications Discharge Medications Home Medications: Home Medications ?Medication ?Instructions ?Recorded ?Confirmed Tylenol 500 mg PO Q6-8H PRN Pain (Scale 09/16/24 09/16/24 Score 7-10) cholecalciferol (vitamin D3) 50 50 mcg PO DAILY 09/16/24 09/16/24 mcg (2,000 unit) capsule gabapentin 600 mg tablet 600 mg PO TID 09/16/24 09/16/24 hydroxyzine HCl 25 mg tablet 25 mg PO TID PRN anxiety 09/16/24 09/16/24 ibuprofen 600 mg tablet 600 mg PO QID PRN Pain 09/16/24 09/16/24 insulin aspart U-100 100 unit/mL 5 unit subcut TIDWM 09/16/24 09/16/24 (3 mL) subcutaneous pen insulin degludec 100 unit/mL (3 16 unit subcut BEDTIME 09/16/24 09/16/24 mL) subcutaneous pen (Tresiba FlexTouch U-100 insulin) ilsoov-rgkugdok-jwndbnf 36,000 cap PO TIDWM 09/16/24 09/16/24 36,000-114,000-180,000 unit capsule,delay rel (Creon) melatonin 3 mg tablet 6 mg PO BEDTIME insomnia 09/16/24 09/16/24 oxycodone 5 mg tablet 5 mg PO Q6H PRN pain 09/16/24 09/16/24 sertraline 100 mg tablet 100 mg PO DAILY 09/16/24 09/16/24 testosterone cypionate 200 mg/mL 40 mg IM QWEEK 09/16/24 09/16/24 intramuscular oil Mental Status Exam Mental Status Exam Narrative: Pt is alert and oriented; behavior is cooperative and calm; dressed in casual attire; mood is described as good ; eye contact appropriate; Speech is normal rate, volume and not pressured; thought process is organized; Thought content is on discharge; denies SI/HI/VH/AH. Data Data Completed and Pending Completed studies during hospitalization [Text1]: 09/16/24 09/17/24 09/17/24 19:38 07:42 09:03 Sodium 136 Potassium 3.9 Chloride 98 Carbon Dioxide 18 L Anion Gap 24 H BUN 12 Creatinine 0.92 Estim Creat Clear Calc 94.9 Estimated GFR > 60 POC Glucose 340 H 229 H Random Glucose 290 H Estimat Average Glucose TNP Hemoglobin A1c % > 14.0 H C-Peptide Calcium 9.6 Total Bilirubin 0.5 AST 56 H ALT 77 H Alkaline Phosphatase 87 Total Protein 7.2 Albumin 4.3 Triglycerides 134 Cholesterol 217 H LDL Cholesterol, Calc 134 H HDL Cholesterol 57 Vitamin B12 1469 H Folate 13.7 TSH 2.13 09/17/24 09/17/24 09/17/24 12:22 16:51 20:25 Sodium Potassium Chloride Carbon Dioxide Anion Gap BUN Creatinine Estim Creat Clear Calc Estimated GFR POC Glucose 199 H 286 H 487 H* Random Glucose Estimat Average Glucose Hemoglobin A1c % C-Peptide Calcium Total Bilirubin AST ALT Alkaline Phosphatase Total Protein Albumin Triglycerides Cholesterol LDL Cholesterol, Calc HDL Cholesterol Vitamin B12 Folate [facility] 09/17/24 09/18/24 09/18/24 21:28 08:01 11:43 Sodium Potassium Chloride Carbon Dioxide Anion Gap BUN Creatinine Estim Creat Clear Calc Estimated GFR POC Glucose 491 H* 402 H* Random Glucose Estimat Average Glucose Hemoglobin A1c % C-Peptide 0.72 L Calcium Total Bilirubin AST ALT Alkaline Phosphatase Total Protein Albumin Triglycerides Cholesterol LDL Cholesterol, Calc HDL Cholesterol Vitamin B12 Folate [facility] 09/18/24 09/18/24 09/18/24 11:49 16:55 20:25 Sodium Potassium Chloride Carbon Dioxide Anion Gap BUN Creatinine Estim Creat Clear Calc Estimated GFR POC Glucose 297 H 392 H* 415 H* Random Glucose Estimat Average Glucose Hemoglobin A1c % C-Peptide Calcium Total Bilirubin AST ALT Alkaline Phosphatase Total Protein Albumin Triglycerides Cholesterol LDL Cholesterol, Calc HDL Cholesterol Vitamin B12 Folate [facility] 09/19/24 09/19/24 09/19/24 07:46 11:41 16:40 Sodium Potassium Chloride Carbon Dioxide Anion Gap BUN Creatinine Estim Creat Clear Calc Estimated GFR POC Glucose 292 H 302 H 390 H* Random Glucose Estimat Average Glucose Hemoglobin A1c % C-Peptide Calcium Total Bilirubin AST ALT Alkaline Phosphatase Total Protein Albumin Triglycerides Cholesterol LDL Cholesterol, Calc HDL Cholesterol Vitamin B12 Folate TSH 09/19/24 09/20/24 09/20/24 21:17 08:14 12:04 Sodium Potassium Chloride Carbon Dioxide Anion Gap BUN Creatinine Estim Creat Clear Calc Estimated GFR POC Glucose 380 H* 269 H 351 H* Random Glucose Estimat Average Glucose Hemoglobin A1c % C-Peptide Calcium Total Bilirubin AST ALT Alkaline Phosphatase Total Protein Albumin Triglycerides Cholesterol LDL Cholesterol, Calc HDL Cholesterol Vitamin B12 Folate TSH 09/20/24 09/20/24 09/21/24 16:53 21:10 07:49 Sodium Potassium Chloride Carbon Dioxide Anion Gap BUN Creatinine Estim Creat Clear Calc Estimated GFR POC Glucose 373 H* 344 H 168 H Random Glucose Estimat Average Glucose Hemoglobin A1c % C-Peptide Calcium Total Bilirubin AST ALT Alkaline Phosphatase Total Protein Albumin Triglycerides Cholesterol LDL Cholesterol, Calc HDL Cholesterol Vitamin B12 Folate TSH DS: Summary Hospital Course Hospital Course: is a 23 year-old transgendered male who was initially brought via EMS to [facility] on 09/11/24 due to pt presenting as confused, non verbal. He was found to be hyperosmolar hyperglycemic (BS over 750) but no DKA (VBG 7.35). He was transferred briefly to ICU and started on an insulin drip. Pertinent labs include CBC without leukocytosis. CMP without electrolyte abnormalities (sodium level normal accounting for hyperglecemia), BUN 9, Cr. 0.87, creatinine clearance 120. TSH low 0.17, A1C 16%. Utox is negative. BAL is also negative. Pt had reported he had stopped taking insulin intentionally as suicide attempt. He also has hx of chronic pancreatitis which causes significant amount of pain. Pt had reported multiple medical conditions were trigger to suicide attempt. According to records from [facility] pt had reported ongoing suicidal ideation for the past 3 weeks of so with plan to drive care [place] [facility] or not taking insulin. Pt had also reported that he was looking a week ago for a bottle of bleach at home. On the unit, pt adamantly denies suicidal ideation. He reported that he gets tired of dealing with medical condition both DM and chronic pancreatitis which he reports has intermittent moderate to severe abdominal pain. He reported feeling better now that he is on the unit and reported feeling more optimistic about his life. He reports fair sleep. He reports his PCP has been prescribing medications. He denies hx of psychosis or delusions. He does not present with s/s of psychosis. He reports remote hx of SIB in late teens and early 20's. He reports current medications are helpful and would not want to make further changes. He does not think he should be here. PLAN 1. Admit to S1, CV, 15 minutes checks 2. continue current medications 3. obtain collateral information 4. aftercare planning Active on unit, social with peers. medication compliant. Pt reports he does not feel he needs to be inpatient. pt stated, I think the person talking to me at the other hospital got confused. I told her I used to be suicidal but I'm not currently. I used to have just thoughts because when I was hurting, I would think, I hate my life . denies hx of SA. Pt continues to deny SI/HI/VH/AH. 3 day up on 09/21/24. Active on unit, social with peers. attending groups. Patient reports feeling good today; pt stated, I'm excited that summer is coming. I plan on hanging out with friends and going to work . Pt reports he plans on staying on top of my diabetes because I don't want to lose a leg .future oriented. denies SI/HI/VH/AH. per nursing, slept 8 hours. 3 day up on 09/21/24. Patient reports feeling good and ready to return home. denies SI/HI/VH/AH. Pt reports he plans on following up with his outpatient providers. Status at Discharge Cognitive/behavioral status at discharge: Patient has insight and demonstrates good judgment in terms of wanting to pursue treatment. Patient has a safety plan that includes presenting to the closest ER or calling 911 if feeling unsafe. Functional status at discharge: independent ambulation Overall status at discharge: patient is back to baseline Time Spent with Patient Time attestation: Total time managing care of this patient today _20___ minutes. Time spent: Less than 30 minutes Discharge Plan Discharge Anticipated Discharge Date/Time: 09/21/24 11:00 Patient Disposition: Home, Self-Care Discharge Diagnosis: MDD Referrals: Raz Valladares MD [Other] - 1 Week (09-20-24 Your follow up appt has been scheduled on 09-26-24 @ 2pm.) Kiel Mac (Therapy) [Other] - 09/22/24 12:00 pm (This appointment will take place on 09/22/24 at noon. ) Discharge Medications: Continued melatonin 3 mg tablet 6 mg PO BEDTIME testosterone cypionate 200 mg/mL oil 40 mg IM QWEEK Rx Instructions: Thursday oxycodone 5 mg tablet 5 mg PO Q6H PRN (Reason: pain) insulin aspart U-100 100 unit/mL (3 mL) insulin pen 5 unit SUBCUT TIDWM cholecalciferol (vitamin D3) 50 mcg (2,000 unit) capsule 50 mcg PO DAILY insulin degludec [Tresiba FlexTouch U-100] 100 unit/mL (3 mL) insulin pen 16 unit subcut BEDTIME ibuprofen 600 mg Tablet 600 mg PO QID PRN (Reason: Pain) Creon 36,000-114,000- 180,000 unit Capsule,Delayed Release(Dr/Ec) 36,000 cap PO TIDWM Tylenol 500 mg PO Q6-8H PRN (Reason: Pain (Scale Score 7-10)) Rx Instructions: Q6 Hours gabapentin 600 mg tablet 600 mg PO TID 30 Days Qty: 90 0RF sertraline 100 mg Tablet 100 mg PO DAILY 30 Days Qty: 30 0RF hydroxyzine HCl 25 mg tablet 25 mg PO TID PRN (Reason: anxiety) 30 Days Qty: 90 0RF Discharge Orders: Discharge Order (Routine); Ordered 09/21/24 Ordered By: Carolina Hernandez Diet: Regular diet Activity on Discharge: As tolerated Stand Alone Forms: Patient Portal Discharge page, Community Support Print Language: Indonesian Care Plan Goals: Maintain mood and safe behaviors Take medications as prescribed Practice coping skills Continue with outpatient providers and reach out to them as needed Health Concerns: Mood stability and behaviors Follow up with PCP regarding diabetes management Plan of Treatment: Follow up with your PCP, psychiatric provider and other outpatient providers regarding above concerns Take medications as prescribed Assessment: Patient has insight and demonstrates good judgment in terms of wanting to pursue treatment. Patient has a safety plan that includes presenting to the closest ER or calling 911 if feeling unsafe. Discharge Date/Time: 09/21/24 10:58
== END 2024-09-21 10:58 | disposition home or self-care (01) | DRG 885 ==
PROVIDERS: Social Worker; Student in an Organized Health Care Education/Training Program; Admitting Provider Psychiatry & Neurology Psychiatry; Responsible Provider Registered Nurse; Visit Provider Psychiatry & Neurology Psychiatry
DX: F33.1 Major depressive disorder, recurrent, moderate (principal); K86.1 Other chronic pancreatitis; F64.0 Transsexualism; Z79.4 Long term (current) use of insulin; E11.65 Type 2 diabetes mellitus with hyperglycemia; G89.29 Other chronic pain; R10.9 Unspecified abdominal pain; Z79.891 Long term (current) use of opiate analgesic; Z79.899 Other long term (current) drug therapy
CPT/HCPCS: 36415; 80053; 80061; 82607; 82746; 82947; 83036; 84443; 84681

== ENCOUNTER → 2024-09-16 18:04 | Outpatient (BNV) | payer OTHER, SELFPAY | PROVIDERS: Admitting Provider Psychiatry & Neurology Psychiatry; Responsible Provider Registered Nurse; Visit Provider Social Worker | DX: F33.1 Major depressive disorder, recurrent, moderate (principal) | CPT/HCPCS: 90792; 99231; 99238 ==

== ENCOUNTER → 2024-09-16 18:04 | Outpatient (BNV) | payer OTHER, SELFPAY | PROVIDERS: Admitting Provider Psychiatry & Neurology Psychiatry; Visit Provider Student in an Organized Health Care Education/Training Program | DX: Z00.8 Encounter for other general examination (principal) | CPT/HCPCS: 99222 ==